=== PATIENT | female | born 1940 | race Caucasian/White ===

== ENCOUNTER 2017-04-24 10:55 | Inpatient (IN) | payer BC ==
[2017-04-20 13:38] LABS: BASOPHILS 0.2 %; BASOPHILS ABSOLUTE 0.02 10/3/uL (0.0-0.16); EOSINOPHILS 2.5 %; HEMATOCRIT 42.7 % (36.0-48.0); HEMOGLOBIN 14.6 g/dL (12.0-16.0); IMMATURE GRANULOCYTES 0.1 %; IMMATURE GRANULOCYTES ABSOLUTE 0.01 10/3/uL (0.0-0.11); LYMPHOCYTES 29.8 %; MEAN CORPUS HGB CONC 34.2 g/dL (32.0-36.0); MEAN CORPUSCULAR HEMOGLOB 30.5 pg (26.0-34.0); MEAN CORPUSCULAR VOLUME 89.1 fL (80-100); MEAN PLATELET VOLUME 8.8 fL (9.2-13.0); MONOCYTES 6.8 %; MONOCYTES ABSOLUTE 0.55 10/3/uL (0.21-1.20); NEUTROPHILS 60.6 %; NEUTROPHILS ABSOLUTE 4.88 10/3/uL (2.02-8.40); PLATELET COUNT 277 10/3/uL (150-400); RBC DISTRIBUTION WIDTH 13.1 % (12.0-16.0); RED CELL COUNT 4.79 10/6/uL (4.0-5.6); WHITE BLOOD CELLS 8.1 10/3/uL (4.5-10.5)
[2017-04-20 13:39] LABS: MANUAL DIFF NO %
[2017-04-20 13:45] LABS: INTERNATIONAL NORMAL RATI 0.9 UNITS (-); PARTIAL THROMBO TIME 24.5 SEC (22.5-37.2); PROTIME (NOT ORD) 12.5 SEC (12.0-14.5)
[2017-04-20 13:58] LABS: A/G RATIO 1.3 (0.7-1.9); ALKALINE PHOSPHATASE 104 U/L (45-117); CALCIUM, SERUM 9.6 MG/DL (8.5-10.4); CHLORIDE, SERUM 103 MMOL/L (96-112); CO2 (CARBON DIOXIDE) 31 MMOL/L (24-34); CREATININE 0.81 MG/DL (0.55-1.02); GFR AFRICAN AMERICAN 83 ML/MIN (>=60); GFR NON AFRICAN AMERICAN 72 ML/MIN (>=60); GLOBULIN 3.2 G/DL (2.5-4.1); GLUCOSE, SERUM 113 MG/DL (60-99); POTASSIUM, SERUM 4.1 MMOL/L (3.5-5.3); SGOT(AST) 20 U/L (5-40); SGPT(ALT) 24 U/L (5-65); SODIUM, SERUM 140 MMOL/L (135-148); TOTAL PROTEIN 7.2 G/DL (6.0-8.5)
[2017-04-20 14:00] LABS: BUN (BLOOD UREA NITROGEN) 19 MG/DL (6-23); TOTAL BILIRUBIN 0.6 MG/DL (0-1.2)
--- NOTE | ~2017-04-24 | OP ---
Record Of Operation [facility] [address] [place]. 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 PROCEDURE: Laparoscopic resection of terminal ileum and proximal right colon with primary ileocolonic anastomosis. SURGEON: Aileen Hendrickson M.D. ANESTHESIA: General with intubation. COMPLICATIONS: None. ESTIMATED BLOOD LOSS: 15 mL. SPECIMENS: Terminal ileum and proximal right colon. DRAINS: Largo in the subcutaneous tissue. LAP AND SPONGE COUNT: Correct x3. BRIEF HISTORY: This 76-year-old female who was recently diagnosed with a 4 cm to 5 cm mass in the cecum. Biopsy showed this to be a tubulovillous adenoma, but it was suspicious for malignancy and was too large to be removed endoscopically. It was felt that laparoscopic proximal right colectomy, possible laparotomy, was indicated. This procedure, the risks, benefits, and alternatives, including not limited to the risk for bleeding, infection, enterotomy, injury to any abdominal structure, postop small bowel obstruction, ileus, incisional hernia, dehiscence, anastomotic leak, requiring reoperation with ileostomy, ureteral injury, possible need for laparotomy, and unforeseen complications including deep venous thrombosis, pulmonary embolus, myocardial infarction, stroke, pneumonia, and , were fully and completely explained to the patient and family at length prior to surgery. The fact that this was a major operation with risk for major morbidity and mortality was explained. The expected length of recovery of both open and laparoscopic procedures was explained. The patient and family had questions, which were answered. They fully understood the risks and agreed to surgery as planned. DESCRIPTION OF PROCEDURE: After being appropriately identified and after discussing the risks of surgery with the patient and family again in the preoperative area and after appropriate bowel preparation at home, the patient was taken to the operating room and placed in a supine position on the operating room table. The general anesthesia was administered, and she was intubated without difficulty. The abdomen was prepped and draped sterilely in the usual fashion. After an appropriate "time-out" per JCAHO standards, after Almazan catheter had been inserted, a small incision was made just below the navel. The skin Record Of [facility] [address] [place]. [address] NAME: AJITH FOX : 42 STATUS : ADM IN PAT#: [id number] AGE: 76 ADM/REG DATE : 04/24/17 MR#: [id number] REPORT SERV DATE: 04/25/17 DICTATED BY: AILEEN HENDRICKSON III DATE: 04/24/17 REPORT STATUS : Draft TRANSCRIBED BY: MIRANDA DATE: 04/24/17 and fascia on either sides were elevated with towel clips. A Veress needle was placed through the incision into the peritoneal cavity. Correct position of the needle in the peritoneal cavity was confirmed by the hanging drop test. The abdominal cavity was insufflated to about 13 mmHg of carbon dioxide. Correct position of air in the peritoneal cavity was confirmed by palpation. The abdominal cavity was then insufflated to about 13 mmHg of carbon oxide. Correct position of air in the peritoneal cavity was confirmed by palpation. The Veress needle was removed and replaced with a 10 mm trocar. The laparoscope was placed through this. A 5 mm trocar was then placed in the midline, midway between the umbilicus and xiphoid process, under direct vision with the laparoscope. Another 5 mm trocar was placed in the midline and the suprapubic area, also under direct vision with the laparoscope. The abdomen was inspected. There was no evidence for carcinomatosis or peritoneal implants. The appropriate instruments were placed through the trocars. The patient was rolled slightly to her left. The right colon was grasped and retracted medially. Using sharp dissection, the peritoneal flexion of right colon was divided along the line of Toldt, from the cecum to the hepatic flexure. The right colon was fully mobilized. After adequate mobilization, a small vertical incision was made along the right lateral abdominal wall. The incision was continued through the subcutaneous tissue. Hemostasis was controlled with electrocautery. The incision was continued through all layers of fascia. The right colon was mobilized into the wound. There was a palpable mass in the cecum. We selected a point for division of the terminal ileum several centimeters proximal to the ileocecal valve. A window was made in the mesentery of the ileum at this point and a CHOLO stapler was used to divide the ileum at this point. We then selected a point for division of the mid right colon, distal to the tumor. A window was made in the mesentery to the colon at this point and a CHOLO stapler was used to divide the colon at this point. The mesentery to this portion of the terminal ileum and right colon was then divided using the Harmonic scalpel. This was done along the base of the mesentery so as to perform a correct oncologic dissection of the lymphovascular supply to this portion of the right colon and terminal ileum. The terminal ileum and proximal right colon was thus removed and sent to pathology interpreted as containing a tumor suspicious for malignancy, with clear margins. We then performed a [id number]-[id number] anastomosis between the divided distal ileum and distal right colon. This was performed by aligning the antimesenteric border of the small bowel with antimesenteric border of the colon with interrupted 3-0 silk sutures. A small opening was then made in the antimesenteric border of the small bowel and corresponding antimesenteric border of the colon. A CHOLO stapler was placed through this and fired. The defect created by the stapler was closed with a TA-60 stapler. This staple line was oversewn with interrupted 3-0 silk sutures. The "crotch" anastomosis was secured with 3-0 silk sutures. Upon completion of this, the anastomosis was widely patent to palpation, it was not twisted or kinked in anyway, and it was not under any tension. The area was irrigated copiously with saline. The colon was reduced back into the abdominal cavity. Hemostasis was assured. The fascia was closed in layers with a running looped #1 PDS suture. All trocars were removed. The fascia of the infraumbilical incision was closed with 0 Vicryl suture. The subcutaneous tissue of the lateral abdominal wall incision was closed with running 3-0 chromic suture over a Largo drain, which was brought through the Record Of Operation [address] [place]. [address] NAME: AJITH FOX : 42 STATUS : ADM IN PAT#: [id number] AGE: 76 ADM/REG DATE : 04/24/17 MR#: [id number] REPORT SERV DATE: 04/25/17 DICTATED BY: AILEEN HENDRICKSON III DATE: 04/24/17 REPORT STATUS : Draft TRANSCRIBED BY: MIRANDA DATE: 04/24/17 inferior aspect of the incision. All skin incisions were closed with running subcuticular 4 0 Monocryl stitches. They were injected with 0.5% Marcaine. Dressings were applied. Anesthesia was reversed. The patient was taken to the recovery room in stable condition. She tolerated the procedure well. Her family was informed of results of surgery. The patient will remain in the hospital for postoperative care. ANETTE/MIRANDA Aileen Hendrickson III, M.D. / [id number] CC: Linda Lay III, MD
--- NOTE | ~2017-04-24 | DS ---
Discharge Summary [facility] [address] [facility] [place] [place]. [address] NAME: AJITH FOX : 42 STATUS : DIS IN PAT#: [id number] AGE: 76 ADM/REG DATE : 04/24/17 MR#: [id number] REPORT SERV DATE: 05/11/17 DICTATED BY: AILEEN HENDRICKSON III DATE: 05/10/17 REPORT STATUS : Draft TRANSCRIBED BY: MODMarisa DATE: 05/10/17 Data Collection from hospitalization DISCHARGE DIAGNOSES: 1. Tubulovillous adenoma of the cecum-probable malignancy. 2. Sleep apnea. 3. Hyperlipidemia. 4. History of transient ischemic attack. 5. Dyspepsia. 6. History of toxoplasmosis. 7. Former smoker. CONSULTATIONS: None. PROCEDURES PERFORMED: Laparoscopic resection of terminal ileum and proximal right colon with primary ileocolonic anastomosis, 04/24/2017. PATHOLOGY: Proximal right colon colectomy-adenocarcinoma arising in a tubulovillous adenoma. Lymph nodes-metastatic adenocarcinoma, 11/09 nodes. MEDICATIONS: Aspirin 325 mg daily, Tums E-X one tablet daily, Klonopin 0.5 mg at bedtime, Neurontin 100 mg at bedtime, Centrum tablets one tablet daily, Percocet 7.5/325 one tablet three times a day as needed, Paxil 10 mg daily, Pravachol 40 mg every morning. CONDITION AT DISCHARGE: Stable. DISPOSITION: The patient was discharged home on a soft diet with activities as instructed. She would follow up with me, 05/10/2017. HOSPITAL COURSE: This is a 76-year-old female, who was diagnosed with a 4-5 cm mass in the cecum. Biopsy revealed this to be tubulovillous adenoma, but it was suspicious for malignancy and it was too large to be removed endoscopically. It was felt that laparoscopic proximal right colectomy and possible laparotomy was indicated. Treatment options were discussed and it was elected to proceed with surgical intervention. She was admitted to the hospital at this time for further evaluation and treatment. Upon admission, she was taken to the operating room, where she underwent the above-mentioned procedure. She tolerated this well and there were no complications. On postop day one, she had no new complaints. She was afebrile. Her abdomen was soft. Clear liquids were started and would be advanced to full liquids. Almazan catheter was removed. She was evaluated by Physical Therapy. Over the next couple of days, she did have some crampy diffuse abdominal gas pain after eating. We decreased her diet. Reglan was given. Dulcolax was provided. We encouraged her to ambulate. Discharge planning was performed. On 04/27/2017, she was feeling well and wanted to go home. She was tolerating her diet and passing stool. Discharge instructions were given. Due to her improved and stable condition, she was discharged home with the above-stated instructions. Information collected by: Mana Chavez Discharge Summary [address] [address] NAME: AJITH FOX : 42 STATUS : DIS IN PAT#: [id number] AGE: 76 ADM/REG DATE : 04/24/17 MR#: [id number] REPORT SERV DATE: 05/11/17 DICTATED BY: AILEEN HENDRICKSON III DATE: 05/10/17 REPORT STATUS : Draft TRANSCRIBED BY: MIRANDA DATE: 05/10/17 I submit the above information as my discharge summary. FALLON/MIRANDA Aileen Hendrickson III, M.D. / [id number] CC: Linda Lay III, M.D.
--- NOTE | ~2017-04-24 | PREOPHP ---
PreOp History and Physical [facility] [address] [place]. [address] NAME: AJITH FOX : 42 STATUS : PRE IN PAT#: [id number] AGE: 76 ADM/REG DATE : MR#: [id number] REPORT SERV DATE: 04/24/17 DICTATED BY: AILEEN HENDRICKSON III DATE: 04/18/17 REPORT STATUS : Draft TRANSCRIBED BY: MODL DATE: 04/18/17 HISTORY OF PRESENT ILLNESS: This 76-year-old female comes to the operating for laparoscopic right colectomy, possible laparotomy, for a large mass of the right colon. The patient recently had a colonoscopy, which was performed for guaiac-positive stool. This colonoscopy revealed a 4 cm mass in the cecum. Biopsy showed this to be a tubulovillous adenoma with postop high-grade dysplasia, of concern for invasive malignancy. The mass was too large to be removed endoscopically. The patient comes now for laparoscopic right colectomy, possible laparotomy. The patient has noted a change in her stool over the last several years with intermittent constipation. She has had no calixto blood per rectum. PAST MEDICAL HISTORY: 1. Sleep apnea. 2. Hyperlipidemia. 3. Trans ischemic attack. 4. Dyspepsia. 5. Toxoplasmosis. MEDICATIONS: Aspirin, vitamins, clonazepam, gabapentin, paroxetine, and pravastatin. ALLERGIES: NONE. PAST SURGICAL HISTORY: Includes cholecystectomy, hysterectomy, and suburethral sling placement. FAMILY HISTORY: Unremarkable. SOCIAL HISTORY: The patient has a previous history of tobacco abuse. No history of alcohol use. REVIEW OF SYSTEMS: The patient complains of blood in stool seen on guaiac, but not clinically. A 14-point review of systems was otherwise unremarkable. PHYSICAL EXAMINATION: GENERAL: This is a female, in no acute distress. She is alert and oriented x3. VITAL SIGNS: Blood pressure 131/67, pulse 83, and temperature 97.5. HEENT: Unremarkable. Cranial nerves II through XII are normal. LUNGS: Clear. CARDIAC: Normal. ABDOMEN: Soft and nontender. No masses. LABORATORY DATA: Colonoscopy shows a polypoid ulcerated 4 cm mass in the cecum. The mass is noncircumferential. Biopsies were performed showing this to be a tubulovillous adenoma with high-grade dysplasia. The patient's CBC is normal. CEA is normal. CT scan of the abdomen PreOp History and Physical [address] [address] NAME: AJITH FOX : 42 STATUS : PRE IN PAT#: [id number] AGE: 76 ADM/REG DATE : MR#: [id number] REPORT SERV DATE: 04/24/17 DICTATED BY: AILEEN HENDRICKSON III DATE: 04/18/17 REPORT STATUS : Draft TRANSCRIBED BY: MIRANDA DATE: 04/18/17 and pelvis shows no evidence for metastatic disease. An irregular soft tissue mass or prominences noted in the cecum. ASSESSMENT: 1. A 76-year-old female with 4 cm cecal mass, at least tubulovillous adenoma with high- grade dysplasia, probable malignancy. 2. Sleep apnea. 3. Hyperlipidemia. 4. History of transient ischemic attack. PLAN: The patient comes to the operating room now for laparoscopic right colectomy, possible laparotomy. On this procedure, the risks, benefits, and alternatives, including not limited to the risk for bleeding, infection, enterotomy, injury to any abdominal structure, postop small bowel obstruction, ileus, incisional hernia, dehiscence, anastomotic leak requiring reoperation of the ileostomy, ureteral injury, possible need for laparotomy, and unforeseen complications including deep venous thrombosis, pulmonary embolus, myocardial infarction, stroke, pneumonia, and , have been explained to the patient prior to surgery. The expected length of recovery of both open and laparoscopic procedures has been explained. The patient's questions have been answered. She clearly understands the risks and agrees to surgery as planned. ANETTE/MIRANDA Aileen Hendrickson III, M.D. / [id number]
[~2017-04-24 10:55] MED LIST: ASA5GR PO; CENTRUM PO; KLONO5 PO; MEDS; NEUR100 PO; PAX10 PO; PRAVACHOL40 MG PO; TUMS E-X750 M2 PO
[2017-04-25 06:12] LABS: BUN (BLOOD UREA NITROGEN) 5 MG/DL (6-23); CALCIUM, SERUM 9.2 MG/DL (8.5-10.4); CHLORIDE, SERUM 109 MMOL/L (96-112); CO2 (CARBON DIOXIDE) 26 MMOL/L (24-34); CREATININE 0.59 MG/DL (0.55-1.02); GFR AFRICAN AMERICAN 105 ML/MIN (>=60); GFR NON AFRICAN AMERICAN 90 ML/MIN (>=60); GLUCOSE, SERUM 152 MG/DL (60-99); POTASSIUM, SERUM 4.3 MMOL/L (3.5-5.3); SODIUM, SERUM 141 MMOL/L (135-148)
[2017-04-25 06:45] LABS: BASOPHILS 0.1 %; EOSINOPHILS 0 %; HEMATOCRIT 40.4 % (36.0-48.0); HEMOGLOBIN 13.9 g/dL (12.0-16.0); LYMPHOCYTES 10.8 %; LYMPHOCYTES ABSOLUTE 1.3 10/3/uL (0.7-4.3); MEAN CORPUS HGB CONC 34.4 g/dL (32.0-36.0); MEAN CORPUSCULAR HEMOGLOB 30.3 pg (26.0-34.0); MEAN CORPUSCULAR VOLUME 88.1 fL (80-100); MEAN PLATELET VOLUME 6.9 fL (6.8-10.8); MONOCYTES 5.5 %; MONOCYTES ABSOLUTE 0.7 10/3/uL (0.2-1.2); NEUTROPHILS 83.6 %; NEUTROPHILS ABSOLUTE 10.3 10/3/uL (2.0-8.4); PLATELET COUNT 276 10/3/uL (150-400); RBC DISTRIBUTION WIDTH 13.1 % (12.0-16.0); RED CELL COUNT 4.59 10/6/uL (4.0-5.6)
[2017-04-25 06:49] LABS: MANUAL DIFF NO %; WHITE BLOOD CELLS 12.3 10/3/uL (4.5-10.5)
[2017-04-26 06:41] LABS: BASOPHILS 0.3 %; BASOPHILS ABSOLUTE 0.03 10/3/uL (0.0-0.16); EOSINOPHILS 1.6 %; EOSINOPHILS ABSOLUTE 0.18 10/3/uL (0.0-0.53); HEMATOCRIT 40.4 % (36.0-48.0); HEMOGLOBIN 13.5 g/dL (12.0-16.0); IMMATURE GRANULOCYTES 0.2 %; IMMATURE GRANULOCYTES ABSOLUTE 0.02 10/3/uL (0.0-0.11); LYMPHOCYTES 28.4 %; LYMPHOCYTES ABSOLUTE 3.18 10/3/uL (0.67-4.30); MEAN CORPUS HGB CONC 33.4 g/dL (32.0-36.0); MEAN CORPUSCULAR HEMOGLOB 30.3 pg (26.0-34.0); MEAN CORPUSCULAR VOLUME 90.6 fL (80-100); MEAN PLATELET VOLUME 8.9 fL (9.2-13.0); MONOCYTES 9.7 %; MONOCYTES ABSOLUTE 1.08 10/3/uL (0.21-1.20); NEUTROPHILS 59.8 %; PLATELET COUNT 257 10/3/uL (150-400); RBC DISTRIBUTION WIDTH 13.7 % (12.0-16.0); RED CELL COUNT 4.46 10/6/uL (4.0-5.6); WHITE BLOOD CELLS 11.2 10/3/uL (4.5-10.5)
[2017-04-26 06:46] LABS: MANUAL DIFF NO %
[2017-04-26 06:54] LABS: BUN (BLOOD UREA NITROGEN) 6 MG/DL (6-23); CALCIUM, SERUM 9.1 MG/DL (8.5-10.4); CHLORIDE, SERUM 107 MMOL/L (96-112); CREATININE 0.53 MG/DL (0.55-1.02); GFR AFRICAN AMERICAN 108 ML/MIN (>=60); GFR NON AFRICAN AMERICAN 94 ML/MIN (>=60); POTASSIUM, SERUM 4.6 MMOL/L (3.5-5.3); SODIUM, SERUM 142 MMOL/L (135-148)
[2017-04-26 07:01] LABS: CO2 (CARBON DIOXIDE) 31 MMOL/L (24-34); GLUCOSE, SERUM 83 MG/DL (60-99)
[2017-04-27 06:24] LABS: BASOPHILS 0.2 %; BASOPHILS ABSOLUTE 0.02 10/3/uL (0.0-0.16); EOSINOPHILS 4.4 %; EOSINOPHILS ABSOLUTE 0.44 10/3/uL (0.0-0.53); HEMOGLOBIN 14.2 g/dL (12.0-16.0); IMMATURE GRANULOCYTES 0.3 %; IMMATURE GRANULOCYTES ABSOLUTE 0.03 10/3/uL (0.0-0.11); LYMPHOCYTES 30.8 %; MEAN CORPUS HGB CONC 33.8 g/dL (32.0-36.0); MEAN CORPUSCULAR HEMOGLOB 30.4 pg (26.0-34.0); MEAN CORPUSCULAR VOLUME 89.9 fL (80-100); MEAN PLATELET VOLUME 8.9 fL (9.2-13.0); MONOCYTES 7.2 %; MONOCYTES ABSOLUTE 0.72 10/3/uL (0.21-1.20); NEUTROPHILS 57.1 %; NEUTROPHILS ABSOLUTE 5.74 10/3/uL (2.02-8.40); PLATELET COUNT 276 10/3/uL (150-400); RBC DISTRIBUTION WIDTH 13.4 % (12.0-16.0); RED CELL COUNT 4.67 10/6/uL (4.0-5.6); WHITE BLOOD CELLS 10.1 10/3/uL (4.5-10.5)
[2017-04-27 06:30] LABS: MANUAL DIFF NO %
[2017-04-27 06:31] LABS: BUN (BLOOD UREA NITROGEN) 5 MG/DL (6-23); CALCIUM, SERUM 9.6 MG/DL (8.5-10.4); CHLORIDE, SERUM 103 MMOL/L (96-112); CO2 (CARBON DIOXIDE) 29 MMOL/L (24-34); CREATININE 0.63 MG/DL (0.55-1.02); GFR AFRICAN AMERICAN 102 ML/MIN (>=60); GFR NON AFRICAN AMERICAN 88 ML/MIN (>=60); GLUCOSE, SERUM 92 MG/DL (60-99); SODIUM, SERUM 139 MMOL/L (135-148)
[2017-04-27] MEDS ORDERED: PERCOCET 7.5/321 TAB PO (09:55)
== END 2017-04-27 11:24 | disposition home or self-care (01) | DRG 330 ==
LOC: SDC/OF 10:55 → PACU 14:41 → 5SO 16:56
PROVIDERS: Surgery
PROC: 0DBF4ZZ Excision of Right Large Intestine, Percutaneous Endoscopic Approach (ICD-10-PCS; 2017-04-24)
PROC: 3E0T3CZ (ICD-10-PCS; 2017-04-24)
PROC: 0DBB4ZZ Excision of Ileum, Percutaneous Endoscopic Approach (ICD-10-PCS; principal; 2017-04-24 12:30)
DX: C18.2 Malignant neoplasm of ascending colon (principal); K91.89 Other postprocedural complications and disorders of digestive system; K56.7 Ileus, unspecified; C77.2 Secondary and unspecified malignant neoplasm of intra-abdominal lymph nodes; G47.33 Obstructive sleep apnea (adult) (pediatric); E78.5 Hyperlipidemia, unspecified; Z86.73 Personal history of transient ischemic attack (TIA), and cerebral infarction without residual deficits; Z79.82 Long term (current) use of aspirin; Z79.899 Other long term (current) drug therapy; Z90.49 Acquired absence of other specified parts of digestive tract; Z98.890 Other specified postprocedural states; Z90.710 Acquired absence of both cervix and uterus; Z87.891 Personal history of nicotine dependence
CPT/HCPCS: 36415; 71020; 80048; 80053; 85025; 85610; 85730; 86850; 86900; 86901; 88309; 88341; 88342; 93005; 97161-GP; A9270-GY; J0690; J1170; J1885; J2250; J2270; J2405; J2710; J2765; J2795; J3010